=== PATIENT | male | born 1975 | race Caucasian/White ===

== ENCOUNTER 2018-05-12 17:21 | Emergency (ER) | payer OTHER ==
[2018-05-12 17:46] VITALS: O2SAT 98
[2018-05-12 18:14] LABS: BASO % 0.6 % (0.0-2.0); EOS # 0.1 K/uL (0.0-0.7); EOS % 1.8 % (0.0-4.0); HEMOGLOBIN 15.3 g/dL (12.0-18.0); LYMPH # 2.2 K/uL (1.0-4.3); MEAN CELL VOLUME 84.8 fl (80.0-94.0); MEAN CORPUSCULAR HEMOGLOBIN 28.7 pg (27.0-31.0); MEAN CORPUSCULAR HGB CONC 33.9 g/dL (33.0-37.0); MEAN PLATELET VOLUME 8.6 fl (7.2-11.7); MONO # 0.6 K/uL (0.0-0.8); MONO % 8.1 % (0.0-10.0); NEUT # 4.8 K/uL (1.8-7.0); NEUT % 61.5 % (50.0-75.0); RBC 5.33 Mil/uL (4.40-5.90); RED CELL DISTRIBUTION WIDTH 13.6 % (11.5-14.5); WHITE BLOOD COUNT 7.8 K/uL (4.8-10.8)
[2018-05-12] MEDS ORDERED: Sodium Chloride 0.9% 1,000 ML IV SCH (18:15)
[2018-05-12 18:29] LABS: ALB/GLOB RATIO 1.2 (1.0-2.1); ALBUMIN 4.4 g/dL (3.5-5.0); BLOOD UREA NITROGEN 7 mg/dl (9-20); CALCIUM 9.6 mg/dL (8.4-10.2); GFR NON-AFRICAN AMERICAN > 60
[2018-05-12 18:31] LABS: SQUAMOUS EPITHIAL < 1 /hpf (0-5); URINE BACTERIA RARE (<OCC); URINE BILIRUBIN NEGATIVE (NEGATIVE); URINE BLOOD LARGE (NEGATIVE); URINE CLARITY SLIGHTY-CLOUDY (Clear); URINE COLOR YELLOW (YELLOW); URINE GLUCOSE (UA) NEG (NEGATIVE); URINE LEUKOCYTE ESTERASE NEG Leu/uL (Negative); URINE PROTEIN 30 mg/dL (NEGATIVE); URINE UROBILINOGEN 0.2-1.0 mg/dL (0.2-1.0)
[2018-05-12 18:36] LABS: ALT/SGPT 17 U/L (21-72); AST/SGOT 24 U/L (17-59)
[2018-05-12 19:26] VITALS: PULSE 95; RESP 16
--- NOTE | 2018-05-12 19:36 | ED PDOC ---
HPI: Male Pain Time Seen by Provider: 05/12/18 17:51 Chief Complaint (Nursing): Male Genitourinary Chief Complaint (Provider): Renal Calculus History Per: Patient History/Exam Limitations: no limitations Onset/Duration Of Symptoms: Days (one to two) Current Symptoms Are (Timing): Still Present Severity: Mild Quality Of Discomfort: Sharp, "Pain" Associated Symptoms: Back Pain, Urinary Symptoms (Pt presents to the ED with a hx of renal stones 7x in the past and complaining of right sided flank pain since the mornign; pt also indicates that he possesses hematuria during his last passage of urine. Pt indicates that these symptoms are consistent with renal calculi in the past. Pt denies NVD and fever) Past Medical History Reviewed: Historical Data, Nursing Documentation, Vital Signs Vital Signs: Last Vital Signs Temp 98.1 F 05/12/18 19:25 Pulse 95 H 05/12/18 19:25 Resp 16 05/12/18 19:25 BP 139/95 H 05/12/18 19:25 Pulse Ox 98 05/12/18 19:25 - Medical History PMH: Kidney Stones - Family History Family History: States: Unknown Family Hx - Home Medications Home Medications: Ambulatory Orders Medication Instructions Recorded Tamsulosin HCl [Flomax] 0.4 mg PO DAILY #30 cap.er.24h 05/12/18 oxyCODONE/Acetaminophen [Percocet 1 ea PO QID #16 tab 05/12/18 5/325 mg Tab] - Allergies Allergies/Adverse Reactions: Allergies Allergy/AdvReac Type Severity Reaction Status Date / Time No Known Allergies Allergy Verified 05/12/18 17:43 Review of Systems ROS Statement: Except As Marked, All Systems Reviewed And Found Negative Genitourinary Male: Positive for: Hematuria Musculoskeletal: Positive for: Back Pain Physical Exam - Reviewed Nursing Documentation Reviewed: Yes Vital Signs Reviewed: Yes - Physical Exam Appears: Positive for: Well, Non-toxic, No Acute Distress. Negative for: Uncomf ortable Head Exam: Positive for: ATRAUMATIC, NORMAL INSPECTION Skin: Positive for: Normal Color, Warm, Dry. Negative for: Diaphoresis, Pallor, Rash Eye Exam: Positive for: Normal appearance, PERRL. Negative for: Nystagmus, Periorbital swelling, Periorbital tenderness ENT: Positive for: Normal ENT Inspection Neck: Positive for: Normal, Painless ROM, Supple. Negative for: Decreased ROM Cardiovascular/Chest: Positive for: Regular Rate, Rhythm Respiratory: Positive for: Normal Breath Sounds Pulses-Carotid (L): 2+ Pulses-Carotid (R): 2+ Pulses-Radial (L): 2+ Pulses-Radial (R): 2+ Gastrointestinal/Abdominal: Positive for: Normal Exam. Negative for: Tenderness, Guarding, Rebound Back: Positive for: Normal Inspection, R CVA Tenderness. Negative for: L CVA Tenderness, Vertebral Tenderness, Decreased ROM, Muscle Spasm - Laboratory Results Result Diagrams: 05/12/18 18:09 05/12/18 18: Lab Results: Total Bilirubin 0.5 mg/dl (0.2-1.3) 05/12/18 18: AST 24 U/L (17-59) 05/12/18 18: ALT 17 U/L (21-72) L 05/12/18 18: Alkaline Phosphatase 75 U/L (38-126) 05/12/18 18: Total Protein 8.2 G/DL (6.3-8.2) 05/12/18 18: Albumin 4.4 g/dL (3.5-5.0) 05/12/18 18: Globulin 3.8 gm/dL (2.2-3.9) 05/12/18 18: Albumin/Globulin Ratio 1.2 (1.0-2.1) 05/12/18 18:09 Urine Color Yellow (YELLOW) 05/12/18 18: Urine Clarity Slighty-cloudy (Clear) 05/12/18 18: Urine pH 7.0 (5.0-8.0) 05/12/18 18: Ur Specific [place] 1.006 (1.003-1.030) 05/12/18 18: Urine Protein 30 mg/dL (NEGATIVE) 05/12/18 18: Urine Glucose (UA) Neg mg/dL (NEGATIVE) 05/12/18 18: Urine Ketones Negative mg/dL (NEGATIVE) 05/12/18 18: Urine Blood Large (NEGATIVE) 05/12/18 18: Urine Nitrate Negative (NEGATIVE) 05/12/18 18: Urine Bilirubin Negative (NEGATIVE) 05/12/18 18: Urine Urobilinogen 0.2-1.0 mg/dL (0.2-1.0) 05/12/18 18:09 Ur Leukocyte Esterase Neg Nicky/uL (Negative) 05/12/18 18:09 Urine RBC (Auto) 167 /hpf (0-3) H 05/12/18 18:09 Urine Microscopic WBC 3 /hpf (0-5) 05/12/18 18:09 Ur Squamous Epith Cells < 1 /hpf (0-5) 05/12/18 18:09 Urine Bacteria Rare (<OCC) 05/12/18 18:09 - ECG O2 Sat by Pulse Oximetry: 98 Medical Decision Making Medical Decision Making: R/O renal caluculus CBC CMP UA CT without Disposition - Clinical Impression Clinical Impression: Kidney stone on right side - Patient ED Disposition Is Patient to be Admitted: No Doctor Will See Patient In The: Office - Disposition Referrals: Candido Gaspar MD [Medical Doctor] - Disposition: Transfer of Care Disposition Time: 20:04 Condition: STABLE Prescriptions: oxyCODONE/Acetaminophen [Percocet 5/325 mg Tab] 1 ea PO QID #16 tab Tamsulosin HCl [Flomax] 0.4 mg PO DAILY #30 cap.er.24h Forms: [employer] ([place])
--- NOTE | 2018-05-12 21:02 | ED PDOC ---
- Laboratory Results Result Diagrams: 05/12/18 18:09 05/12/18 18:09 Lab Results: Total Bilirubin 0.5 mg/dl (0.2-1.3) 05/12/18 18:09 AST 24 U/L (17-59) 05/12/18 18:09 ALT 17 U/L (21-72) L 05/12/18 18:09 Alkaline Phosphatase 75 U/L (38-126) 05/12/18 18:09 Total Protein 8.2 G/DL (6.3-8.2) 05/12/18 18: Albumin 4.4 g/dL (3.5-5.0) 05/12/18 18: Globulin 3.8 gm/dL (2.2-3.9) 05/12/18 18: Albumin/Globulin Ratio 1.2 (1.0-2.1) 05/12/18 18:09 Urine Color Yellow (YELLOW) 05/12/18 18: Urine Clarity Slighty-cloudy (Clear) 05/12/18 18: Urine pH 7.0 (5.0-8.0) 05/12/18 18: Ur Specific [place] 1.006 (1.003-1.030) 05/12/18 18:09 Urine Protein 30 mg/dL (NEGATIVE) 05/12/18 18:09 Urine Glucose (UA) Neg mg/dL (NEGATIVE) 05/12/18 18:09 Urine Ketones Negative mg/dL (NEGATIVE) 05/12/18 18:09 Urine Blood Large (NEGATIVE) 05/12/18 18:09 Urine Nitrate Negative (NEGATIVE) 05/12/18 18:09 Urine Bilirubin Negative (NEGATIVE) 05/12/18 18:09 Urine Urobilinogen 0.2-1.0 mg/dL (0.2-1.0) 05/12/18 18:09 Ur Leukocyte Esterase Neg Nicky/uL (Negative) 05/12/18 18:09 Urine RBC (Auto) 167 /hpf (0-3) H 05/12/18 18:09 Urine Microscopic WBC 3 /hpf (0-5) 05/12/18 18:09 Ur Squamous Epith Cells < 1 /hpf (0-5) 05/12/18 18:09 Urine Bacteria Rare (<OCC) 02/09/19 18:09 - ECG O2 Sat by Pulse Oximetry: 98 - Progress ED Course And Treament: 1999 Signed out to me pending CT report. 2100 Pt. informed of results. No distress. Reports no pain at this time. Advised to f/u with Dr. Gaspar for further evaluation but is to return to ED immediately if symptoms worsen. Disposition - Clinical Impression Clinical Impression: Kidney stone on right side - POA Present On Arrival: None - Disposition Referrals: Candido Gaspar MD [Medical Doctor] - Disposition: Routine/Home Disposition Time: 21:01 Condition: STABLE Additional Instructions: FOLLOW UP YOU WITH DR. GASPAR FOR FURTHER EVALUATION RETURN TO ED IMMEDIATELY IF SYMPTOMS WORSEN MONIQUE MATA, thank you for letting us take care of you today. Your provider was Lilia Bloom MD and you were treated for POSS KIDNEY STONE. The emergency medical care you received today was directed at your acute symptoms. If you were prescribed any medication, please fill it and take as directed. It may take several days for your symptoms to resolve. Return to the Emergency Department if your symptoms worsen, do not improve, or if you have any other problems. Please contact your doctor or call one of the physicians/clinics you have been referred to that are listed on the Patient Visit Information form that is included in your discharge packet. Bring any paperwork you were given at discharge with you along with any medications you are taking to your follow up visit. Our treatment cannot replace ongoing medical care by a primary care provider outside of the emergency department. Thank you for allowing the [facility] team to be part of your care today. If you had an X-Ray or CT scan: A Radiologist will review the ED reading if any change in treatment is needed we will contact you. If you had a blood, urine, or wound culture: It will take several days for the results, if any change in treatment is needed we will contact you. If you had an STI test: It will take 48 hours for the results. Please call after 1 week if you have not heard back. Prescriptions: Ibuprofen [Motrin Tab] 800 mg PO Q6 PRN #12 tab PRN Reason: Pain oxyCODONE/Acetaminophen [Percocet 5/325 mg Tab] 1 ea PO QID #16 tab Tamsulosin HCl [Flomax] 0.4 mg PO DAILY #30 cap.er.24h Instructions: How to Strain Your Urine, Kidney Stones (DC) Forms: [employer] (Citizen [place])
[2018-05-12 22:36] VITALS: BP 140/92; TEMP 98.2
--- NOTE | 2018-05-13 09:04 | CT ---
Date of service: 05/12/2018 PROCEDURE: CT Abdomen and Pelvis without intravenous contrast HISTORY: r/o stones COMPARISON: None. TECHNIQUE: Contiguous images were obtained from the domes of the diaphragms to the upper thighs without the administration of intravenous contrast. Oral contrast was not administered. Radiation dose: Total exam DLP = 706.6 mGy-cm. This CT exam was performed using one or more of the following dose reduction techniques: Automated exposure control, adjustment of the mA and/or kV according to patient size, and/or use of iterative reconstruction technique. FINDINGS: LOWER THORAX: Unremarkable. LIVER: Unremarkable. No gross lesion or ductal dilatation. GALLBLADDER AND BILE DUCTS: Unremarkable. PANCREAS: Unremarkable. No gross lesion or ductal dilatation. SPLEEN: Unremarkable. ADRENALS: Unremarkable. No mass. KIDNEYS AND URETERS: Punctate calculus in the proximal right ureter causing mild prominence of the right renal collecting system. No hydronephrosis. No solid mass. VASCULATURE: Unremarkable. No aortic aneurysm. No aortic atherosclerotic calcification or mural plaque present. BOWEL: Small hiatal hernia. No obstruction. No gross mural thickening. APPENDIX: Unremarkable. Normal appendix. PERITONEUM: Unremarkable. No free fluid. No free air. LYMPH NODES: Unremarkable. No enlarged lymph nodes. BLADDER: Unremarkable. REPRODUCTIVE: Unremarkable. BONES: No acute fracture. OTHER FINDINGS: None. IMPRESSION: Punctate proximal right ureteral calculus causing mild prominence of the right renal collecting system.
== END 2018-05-12 21:05 | disposition home or self-care (01) ==
LOC: SUPCPDRO 17:21 → H.ER 17:21
DX: N20.2 Calculus of kidney with calculus of ureter (principal)
CPT/HCPCS: 74176; 80053; 81003; 85025; 99284; J7030